=== PATIENT | male | born 1950 | race Caucasian/White ===

== ENCOUNTER 2016-08-15 07:27 | Day surgery (SDC) | payer BC, MEDICARE ==
[~2016-08-15 07:27] MED LIST: Acetaminophen/HYDROcodone 325-5 MG Tab PO PRN; Lactated Ringers 1,000 ML IV SCH; Sodium Chloride 0.9% 10 ML Syringe FLUSH PRN
[2016-08-15] MEDS: ceFAZolin 1 GM in Sodium Chloride 0.9% 50 ML IV ONE ×2 (08:36→09:06)
[2016-08-15] MEDS ORDERED: Midazolam 1 MG/ML 5 ML SDV ONE (09:30)
[2016-08-15 10:21] VITALS: BP 134/84
--- NOTE | 2016-08-15 15:23 | OR ---
DATE OF OPERATION: PREOPERATIVE DIAGNOSIS: Right index trigger finger. POSTOPERATIVE DIAGNOSIS: Right index trigger finger. PROCEDURE: Right index trigger finger release. ANESTHESIA: [place] block. RELISH BLENDER: Margret Betancourt RN SPECIMENS: None. DRAINS: None. ESTIMATED BLOOD LOSS: Minimal. COMPLICATIONS: None apparent. DESCRIPTION OF PROCEDURE: After informed consent was obtained, the surgical risks discussed and accepted. Surgical site was marked and the patient was brought to the operating room where a Joshua block was performed uneventfully. Right upper extremity was prepped and draped sterilely, a time out was held, antibiotics were confirmed. An incision was made longitudinally over the A1 ivelisse, dissecting sharply through the skin and subcutaneous tissues down on to the A1 ivelisse. Scissor dissection had been carried out to check the adjacent neurovascular structures. With the A1 ivelisse exposed, it was longitudinally released. We were then able to demonstrate full excursion of the digit without triggering. We copiously irrigated and closed with 4-0 nylon, sterile dressings were applied. The patient was brought to the recovery room in stable condition. JENNIFER/CRYSTAL /[id number]
== END 2016-08-15 11:28 | disposition home or self-care (01) ==
LOC: LB.SDS 07:27
PROVIDERS: ATTEND Orthopaedic Surgery
DX: M65.321 Trigger finger, right index finger (principal); Z91.013 Allergy to seafood
CPT/HCPCS: 26055; J0690; J2250; J7050; J7120